=== PATIENT | female | born 1950 | race Caucasian/White ===

== ENCOUNTER 2019-05-05 14:27 | Outpatient (CLI) | payer OTHER | END 2019-05-05 14:39 | disposition home or self-care (01) | LOC: RAD 14:27 | DX: Z12.31 Encounter for screening mammogram for malignant neoplasm of breast (principal); M54.5 Low back pain ==

== ENCOUNTER 2020-05-28 08:06 | Outpatient (CLI) | payer OTHER | END 2020-05-28 08:14 | disposition home or self-care (01) | LOC: MAMO-SONO 08:06 | PROVIDERS: ATTEND Family Medicine Adult Medicine | DX: D24.1 Benign neoplasm of right breast (principal); N64.59 Other signs and symptoms in breast; Z12.31 Encounter for screening mammogram for malignant neoplasm of breast ==

== ENCOUNTER 2020-05-28 09:44 | Outpatient (CLI) | payer OTHER | END 2020-05-28 09:58 | disposition home or self-care (01) | LOC: NUCLEAR 09:44 | DX: M81.0 Age-related osteoporosis without current pathological fracture (principal) ==